=== PATIENT | male | born 1960 | race Caucasian/White ===

== ENCOUNTER → 2022-11-27 | Outpatient (CLI) | payer OTHER ==
--- NOTE | 2022-11-27 07:08 | MR ---
MRI CERVICAL SPINE: CLINICAL HISTORY: Cervical disc disorder. Headaches with tingling and numbness into bilateral hands s padmini March 2021 TECHNIQUE: Multiplanar, multisequence imaging of the cervical spine is performed without IV contrast. COMPARISON: None. FINDINGS: Sagittal images of the cervical spine show the craniocervical junction to appear within nor mal limits. There is diminished AP diameter to the cervical spinal cord upper to mid cervical level w ithout abnormal signal. There is grade 1 retrolisthesis C3 on C4 and C4 on C5. The vertebral body he ights are normal. Moderate multilevel disc space narrowing C3-C4 through C6-C7 levels with heterogen eous Modic type I and type III changes are present. Mild/moderate multilevel anterior spurring. Axial images at C2-C3 level appear within normal limits. Axial images at C3-C4 level show spondylolisthesis with broad-based posterior disc protrusion effacin g anterior thecal sac and causing mild to moderate bilateral neural foraminal narrowing. Spinal cord is flattened. There is loss of surrounding CSF present. Axial images at C4-C5 level show spondylolisthesis and broad-based posterior disc protrusion the paci ng anterior thecal sac and causing [id number] bilateral neural foraminal narrowing. Flattening of ventral surface of the spinal cord is seen. Axial images at C5-C6 level appear within normal limits. Axial images at C6-C7 level show tiny central disc protrusion mildly effacing anterior thecal sac wit h left paracentral component causing mild left-sided neural foraminal narrowing. Axial images at C7-T1 level appear within normal limits. IMPRESSION: Multilevel spondylolisthesis and degenerative change in the cervical spine as detailed ab ove. Most prominent spinal canal effacement or stenosis at C3-C4 and to slightly lesser degree at C4- C5 levels.
== END | disposition home or self-care (01) ==
LOC: RADMRIMAIN 06:11
PROVIDERS: ATTEND Family Medicine
DX: M47.812 Spondylosis without myelopathy or radiculopathy, cervical region (principal); M43.12 Spondylolisthesis, cervical region; M48.02 Spinal stenosis, cervical region; M50.321 Other cervical disc degeneration at C4-C5 level
CPT/HCPCS: 72141

== ENCOUNTER → 2023-01-01 | Outpatient (CLI) | payer OTHER ==
--- NOTE | 2023-01-01 10:11 | MR ---
EXAMINATION TYPE: MR iac wo/w con DATE OF EXAM: 01/01/2023 COMPARISON: None HISTORY: Left side hearing loss, left side weakness, Lt and Rt side numbness, memory loss TECHNIQUE: Multiplanar, multisequence images of the brain and brainstem is performed without and with IV contras t, utilizing 8 mL intravenous Gadavist . FINDINGS: Diffusion weighted images demonstrate no evidence of a recent infarct or other diffusion ab normality. There is abnormal signal in the periventricular white matter which is nonspecific but mos t suggestive of remote microvascular ischemia. The brain volume is age appropriate. Midline structures demonstrate normal morphology. The craniocervical junction appears within normal limits. Post contrast images demonstrate no abnormal enhancement. The dural venous sinuses appear pa tent. The visualized sinuses demonstrate severe mucosal thickening in the right maxillary sinus and m ild changes of the orbits are symmetric. There is a nasal septal deviation. No evidence of cerebellop ontine angle mass. There are changes of chronic mastoiditis. There is a small 1.1 cm cyst adjacent to the right temporomandibular joint is too small to characterize and nonspecific IMPRESSION: 1. No evidence of cerebellopontine angle mass. 2. Chronic mastoiditis and sinusitis. 3. Nonspecific white matter findings most typical of microvascular ischemia.
== END | disposition home or self-care (01) ==
LOC: RADMRIMAIN 08:55
PROVIDERS: ATTEND Nurse Practitioner Family
DX: I67.82 Cerebral ischemia (principal); R90.82 White matter disease, unspecified; H90.42 Sensorineural hearing loss, unilateral, left ear, with unrestricted hearing on the contralateral side; J32.9 Chronic sinusitis, unspecified
CPT/HCPCS: 70553; A9585